=== PATIENT | female | born 1990 | race Caucasian/White ===

== ENCOUNTER 2020-02-04 15:02 | Emergency (ER) | payer OTHER ==
[~2020-02-04] VITALS: Ht 152.4 cm; Wt 49.9 kg
== END 2020-02-04 16:40 | disposition home or self-care (01) ==
LOC: ED 15:02
DX: S62.643A Nondisplaced fracture of proximal phalanx of left middle finger, initial encounter for closed fracture (principal); F17.200 Nicotine dependence, unspecified, uncomplicated; W50.0XXA Accidental hit or strike by another person, initial encounter; Y93.89 Activity, other specified; Y92.89 Other specified places as the place of occurrence of the external cause; Y99.8 Other external cause status